=== PATIENT | male | born 1950 | race Caucasian/White ===

== ENCOUNTER 2016-10-17 11:11 | Day surgery (SDC) | payer MEDICARE ==
[2016-10-13 11:01] VITALS: BMI 22.6
[~2016-10-17 11:11] MED LIST: LIDOCAINE 1% 20 ML VIAL (10MG/ML) FOR IV START INTRADERMA PRN
[2016-10-17 11:32] VITALS: RESP 18; TEMP 97.5
[2016-10-17] MEDS: LACTATED RINGERS 1,000 ML IV SCH ×2 (11:37→12:57)
[2016-10-17] MEDS ORDERED: PROPOFOL 10 MG/ML 20 ML VIAL IV ONE (12:59)
--- NOTE | 2016-10-17 13:38 | P.PCN ---
Date of Procedure: 10/17/16 Preoperative Diagnosis: Postoperative Diagnosis: Procedure(s) Performed: Procedures: 1. Esophagogastroduodenoscopy and biopsy. 2. Colonoscopy and biopsy. Preoperative diagnosis: 1. Nausea, vomiting and history of reflux. 2. Change in bowel habits. Postoperative diagnosis: 1. Small hiatal hernia. 2. Johana esophagitis. 3. Mild antral gastritis. 4. Sigmoid diverticulosis. 5. Multiple biopsies obtained from the duodenum, antrum, esophagus and right colon. Preparation: HalfLytely prep. Sedation: Was provided by anesthesia. Brief clinical history: The patient is 66-year-old male who is referred for this evaluation because of issues with change in bowel habits in the form of diarrhea as well as reflux, nausea and vomiting that he has been having for several months and possibly longer. The patient had a prior upper and lower endoscopy several years back, perhaps, 15-20 years ago as far as he can remember. This evaluation is to assess for complicated reflux disease, neoplasia or other pathology. Procedure: With the patient on his left lateral decubitus position and after informed consent and adequate sedation, I passed the Olympus-GIF 160 video upper endoscope through the cricopharyngeus down the esophagus. GE junction was around 40 cm from the incisors and there was a small sliding hiatal hernia measuring between 1 and 2 cm. The endoscope was then passed into the stomach which was insufflated with air and inspected in detail including the retroflex view in the cardia. Finally, the endoscope was passed through the pylorus into the duodenum. Pyloric channel, duodenal bulb, post bulbar area and descending duodenum appeared within normal limits. The antrum showed mottling and erythema consistent with mild gastritis but there were no ulcers or gastric outlet obstruction or bleeding. The esophagus showed erythema and there were multiple small sticky white exudates consistent with Johana esophagitis. I obtained biopsies from the duodenum, antrum and esophagus then the endoscope was withdrawn and I proceeded with the colonoscopy. The perianal area did not show any fissures or fistulas. There were no masses felt on digital rectal examination. The Olympus CFQ 160L video colonoscope was then inserted in the rectum in the usual fashion and advanced to the cecum. The mucosa appeared healthy. No polyps or tumors were seen. Several diverticular orifices were seen scattered in the sigmoid with no evidence of acute diverticulitis or strictures. I obtained biopsies from the right colon then I retroflexed the endoscope in the rectum before the endoscope was withdrawn. The patient tolerated the procedure well. Plan: The patient was reassured. Will await biopsy results and make further plans based on his course and biopsy results. He will follow up with you as planned. Implants: Indications for Procedure: Operative Findings: Description of Procedure:
[2016-10-17 14:23] VITALS: BP 119/61; PULSE 83
== END 2016-10-17 14:42 | disposition home or self-care (01) ==
LOC: ORWHC2ENDO 11:11
DX: K29.50 Unspecified chronic gastritis without bleeding (principal); K21.0 Gastro-esophageal reflux disease with esophagitis; B37.81 Candidal esophagitis; K57.30 Diverticulosis of large intestine without perforation or abscess without bleeding; K44.9 Diaphragmatic hernia without obstruction or gangrene; R19.4 Change in bowel habit; M06.9 Rheumatoid arthritis, unspecified; F41.9 Anxiety disorder, unspecified; R56.9 Unspecified convulsions; Z79.899 Other long term (current) drug therapy; Z79.51 Long term (current) use of inhaled steroids; Z88.5 Allergy status to narcotic agent; F17.200 Nicotine dependence, unspecified, uncomplicated
CPT/HCPCS: 88305; 88342; 45380; 43239; J2704

== ENCOUNTER 2017-11-08 10:46 | Inpatient (IN) | payer MEDICARE ==
[2017-11-08] MEDS ORDERED: SODIUM CHLORIDE 0.9% 1,000 ML IV STA (10:50)
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
[2017-11-08] MEDS ORDERED: HYDROcodone/APAP 5-325MG 1 EACH TAB PO STA (11:38)
--- NOTE | 2017-11-08 12:05 | CT ---
EXAMINATION TYPE: CT brain wo con DATE OF EXAM: 11/08/2017 COMPARISON: None HISTORY: syncope CT DLP: [address] of the brain was performed. The ventricles, basal cisterns and sulci overlying the cerebral convexities demonstrate mild enlargem ent. There is no evidence for intracranial hemorrhage or sulcal effacement. There is decreased attenuation about the periventricular white matter and deep white matter of both c erebral hemispheres, compatible with chronic small vessel ischemia. Differential diagnosis does inclu de demyelination. No mass effects are seen.No midline shift. Osseous calvarium is intact. If symptoms persist consider MRI. IMPRESSION: 1. Age related atrophic and chronic small vessel ischemic change without acute intracranial process s een at this time.
[2017-11-08 12:08] LABS: Basophils % (A) 0 %; Eosinophils # (A) 0.1 k/uL (0-0.7); Eosinophils % (A) 2 %; HCT 34.6 % (39.0-53.0); HGB 11.7 gm/dL (13.0-17.5); Lymphocytes # (A) 0.9 k/uL (1.0-4.8); Lymphocytes % (A) 20 %; MCH 35.7 pg (25.0-35.0); MCHC 33.8 g/dL (31.0-37.0); MCV 105.5 fL (80.0-100.0); Macrocytosis Moderate; Mean Platelet Volume 6.9; Monocytes # (A) 0.3 k/uL (0-1.0); Monocytes % (A) 7 %; Neutrophils # (A) 3.2 k/uL (1.3-7.7); Neutrophils % (A) 70 %; Platelet Count 215 k/uL (150-450); RBC 3.28 m/uL (4.30-5.90); RDW 14.6 % (11.5-15.5); WBC 4.5 k/uL (3.8-10.6)
--- NOTE | 2017-11-08 12:11 | XR ---
EXAMINATION TYPE: XR chest 2V DATE OF EXAM: 11/08/2017 COMPARISON: NONE HISTORY: Shortness of breath TECHNIQUE: Frontal and lateral views of the chest are obtained. FINDINGS: Scattered senescent parenchymal changes noted. Hyperinflation compatible with COPD. Mild increased density at the lung bases may reflect developing atelectasis or infiltrates. Correlate clinically. Heart size is stable. Mediastinal structures are stable and grossly unremarkable. No evidence for hilar prominence. Degenerative changes dorsal spine. IMPRESSION: 1. Mild increased density at the lung bases may reflect developing atelectasis or infiltrates. Correl ate clinically.
[2017-11-08 12:17] LABS: D-Dimer 0.4 mg/L FEU (<0.60); Partial Thromboplastin Time 23.1 sec (22.0-30.0)
[2017-11-08 12:20] LABS: ALT 24 U/L (21-72); AST 31 U/L (17-59); Albumin 3.7 g/dL (3.5-5.0); Alkaline Phosphatase 129 U/L (38-126); Anion Gap 9 mmol/L; Blood Urea Nitrogen 13 mg/dL (9-20); Calcium 8.2 mg/dL (8.4-10.2); Carbamazepine (Tegretol) 12.2 ug/mL; Carbon Dioxide 26 mmol/L (22-30); Chloride 92 mmol/L (98-107); Glucose 120 mg/dL (74-99); Magnesium 1.5 mg/dL (1.6-2.3); Potassium 4.4 mmol/L (3.5-5.1); Sodium 127 mmol/L (137-145); Total Bilirubin 0.5 mg/dL (0.2-1.3); Total Protein 6.6 g/dL (6.3-8.2)
[2017-11-08 12:28] LABS: Appearance,Urine Clear (Clear); Bilirubin,Urine 1+ (Negative); Blood,Urine Negative (Negative); Color,Urine Yellow; Glucose,Urine (UA) Negative (Negative); Ketones,Urine Trace (Negative); Leukocyte Esterase,Urine Negative (Negative); Nitrite,Urine Negative (Negative); PH, Urine 6.5 (5.0-8.0); Protein,Urine Trace (Negative); Specific Gravity,Urine 1.015 (1.001-1.035); Urobilinogen,Urine <2.0 mg/dL (<2.0)
[2017-11-08] MEDS ORDERED: MAGNESIUM SULFATE-D5W PMX 1 GM in DEXTROSE/WATER 1 100ML.BAG IVPB ONE (12:32)
[2017-11-08 12:42] LABS: Creatine Kinase 111 U/L (55-170)
[2017-11-08 12:55] LABS: Creatine Kinase MB 2.2 ng/mL (0.0-2.4); Troponin I <0.012 ng/mL (0.000-0.034)
[2017-11-08] MEDS ORDERED: NALOXONE 0.4 MG/ML 1 ML VIAL IV PRN (13:32)
[2017-11-08] MEDS ORDERED: tiZANidine 4 MG TAB PO PRN (13:33)
[2017-11-08] MEDS ORDERED: ONDANSETRON 4 MG TAB PO PRN (13:33)
[2017-11-08] MEDS ORDERED: HYDROcodone/APAP 5-325MG 1 EACH TAB PO PRN (13:33)
[2017-11-08] MEDS ORDERED: VARDENAFIL HCL 20 MG PO PRN (13:33)
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
[2017-11-08] MEDS ORDERED: IPRATROPIUM-ALBUTEROL 3 ML NEB INHALATION PRN (14:22)
[2017-11-08] MEDS: SODIUM CHLORIDE 0.9% 1,000 ML IV SCH (14:33)
[2017-11-08] MEDS ORDERED: NICOTINE 21MG/24HR PATCH TRANSDERM STA (15:12)
[2017-11-08 15:30] VITALS: RESP 18
[2017-11-08] MEDS: carBAMazepine 200 MG TAB PO SCH ×3 (17:45→17:50)
[2017-11-08] MEDS ORDERED: PANTOPRAZOLE 40 MG TABLET PO STA (17:55)
[2017-11-08] MEDS: SYMBICORT 80-4.5 MCG INHALER INHALATION SCH (20:28)
[2017-11-08] MEDS: ETODOLAC 400 MG TAB PO SCH (20:51)
[2017-11-08] MEDS: busPIRone HCl 10 MG TAB PO SCH (20:51)
[2017-11-09] MEDS: SODIUM CHLORIDE 0.9% 1,000 ML IV SCH ×2 (03:00→14:08)
[2017-11-09] MEDS: carBAMazepine 200 MG TAB PO SCH ×2 (06:30→14:31)
[2017-11-09 07:07] LABS: Basophils % (A) 0 %; Eosinophils # (A) 0.1 k/uL (0-0.7); Eosinophils % (A) 2 %; HCT 34.9 % (39.0-53.0); HGB 11.6 gm/dL (13.0-17.5); Lymphocytes # (A) 1.7 k/uL (1.0-4.8); Lymphocytes % (A) 48 %; MCH 34.5 pg (25.0-35.0); MCHC 33.2 g/dL (31.0-37.0); Macrocytosis Slight; Mean Platelet Volume 7.1; Monocytes # (A) 0.2 k/uL (0-1.0); Monocytes % (A) 7 %; Neutrophils # (A) 1.4 k/uL (1.3-7.7); Neutrophils % (A) 40 %; Platelet Count 203 k/uL (150-450); RBC 3.35 m/uL (4.30-5.90); RDW 14.2 % (11.5-15.5); WBC 3.5 k/uL (3.8-10.6)
[2017-11-09] MEDS ORDERED: PANTOPRAZOLE 40 MG TABLET PO SCH (07:30)
[2017-11-09 07:33] LABS: ALT 22 U/L (21-72); AST 27 U/L (17-59); Albumin 3.6 g/dL (3.5-5.0); Alkaline Phosphatase 125 U/L (38-126); Anion Gap 9 mmol/L; Blood Urea Nitrogen 9 mg/dL (9-20); Calcium 8.2 mg/dL (8.4-10.2); Carbon Dioxide 25 mmol/L (22-30); Chloride 95 mmol/L (98-107); Glucose 96 mg/dL (74-99); Potassium 4.6 mmol/L (3.5-5.1); Sodium 129 mmol/L (137-145); Total Bilirubin 0.5 mg/dL (0.2-1.3); Total Protein 6.6 g/dL (6.3-8.2)
[2017-11-09] MEDS: ETODOLAC 400 MG TAB PO SCH (08:38)
[2017-11-09] MEDS: busPIRone HCl 10 MG TAB PO SCH (08:39)
--- NOTE | 2017-11-09 08:59 | US ---
EXAMINATION TYPE: US carotid duplex BILAT DATE OF EXAM: 11/09/2017 COMPARISON: NONE CLINICAL HISTORY: syncope. EXAM MEASUREMENTS: RIGHT: Peak Systolic Velocity (PSV) cm/sec ----- Right CCA: 74.3 ----- Right ICA: 80.9 ----- Right ECA: 60.4 ICA/CCA ratio: 1.1 RIGHT: End Diastole cm/sec ----- Right CCA: 24.8 ----- Right ICA: 39.1 ----- Right ECA: 12.5 LEFT: Peak Systolic Velocity (PSV) cm/sec ----- Left CCA: 61.5 ----- Left ICA: 102.5 ----- Left ECA: 84.0 ICA/CCA ratio: 1.7 LEFT: End Diastole cm/sec ----- Left CCA: 20.2 ----- Left ICA: 43.5 ----- Left ECA: 19.2 VERTEBRALS (direction of flow): Right Vertebral: Antegrade Left Vertebral: Antegrade Rhythm: Normal Grayscale images show moderate to severe eccentric hyperechoic plaque in the proximal left common car otid artery. There is no significant focal plaque in the carotid bulbs bilaterally. Velocity measurem ents and ratios in visualized portion of both internal carotid arteries is within normal limits. IMPRESSION: No hemodynamically significant stenosis is clearly identified in either internal carotid artery. Criteria for Assigning % of Stenosis / Diameter reduction (Estimation based on the indirect measurements of the internal carotid artery velocities (ICA PSV). 1. Normal (no stenosis)=ICA PSV < 125 cm/s: ratio < 2.0: ICA EDV<40 cm/s. 2. Less than 50% stenosis=ICA PSV < 125 cm/s: ratio < 2.0: ICA EDV<40 cm/s. 3. 50 to 69% stenosis=ICA PSV of 125 to 230 cm/s: ration 2.0 ? 4.0: ICA EDV 40-100 cm/s. 4. Greater than 70% stenosis to near occlusion= ICA PSV > 230 cm/s: ratio > 4.0: ICA EDV > 100 cm/s. 5. Near occlusion= ICA PSV velocities may be low or undetectable: variable ratio and ICA EDV. 6. Total occlusion=unable to detect flow.
[2017-11-09] MEDS ORDERED: ENOXAPARIN 40 MG/0.4 ML SYRINGE SQ SCH (09:00)
[2017-11-09] MEDS ORDERED: NICOTINE 21MG/24HR PATCH TRANSDERM SCH (09:00)
[2017-11-09] MEDS ORDERED: ASCORBIC ACID 500 MG TAB PO SCH (09:00)
[2017-11-09] MEDS ORDERED: Magnesium Replacement Protocol 1 EACH MISC MISCELLANE PRN (10:08)
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
[2017-11-09] MEDS: MAGNESIUM SULFATE-D5W PMX 1 GM in DEXTROSE/WATER 1 100ML.BAG IVPB SCH ×2 (11:10→13:13)
[2017-11-09] MEDS: SYMBICORT 80-4.5 MCG INHALER INHALATION SCH (11:26)
[2017-11-09 11:33] VITALS: BP 137/79; PULSE 69; TEMP 97
--- NOTE | 2017-11-09 11:42 | ECHOF ---
Referral Reason:syncope MEASUREMENTS -------- HEIGHT: 180.3 cm WEIGHT: 72.6 kg BP: 117/71 RVIDd: 3.4 cm (< 3.3) IVSd: 1.3 cm (0.6 - 1.1) LVIDd: 4.4 cm (3.9 - 5.3) LVPWd: 1.4 cm (0.6 - 1.1) IVSs: 1.9 cm LVIDs: 3.0 cm LVPWs: 1.9 cm LA Diam: 3.2 cm (2.7 - 3.8) LAESV Index (A-L): 30.80 ml/m Ao Diam: 3.8 cm (2.0 - 3.7) AV Cusp: 2.1 cm (1.5 - 2.6) EPSS: 1.5 cm MV E Luis Felipe: 0.70 m/s MV DecT: 252 ms MV A Luis Felipe: 0.61 m/s MV E/A Ratio: 1.14 AR PHT: 853 ms RAP: 5.00 mmHg RVSP: 28.67 mmHg MV EF SLOPE: 73.78 mm/s (70 - 150) MV EXCURSION: 2.21 cm (> 18.000) FINDINGS -------- Sinus rhythm. This was a technically adequate study. The left ventricular size is normal. There is mild concentric left ventricular hypertrophy. Overa ll left ventricular systolic function is low-normal with, an EF between 50 - 55 %. The right ventricle is mildly enlarged. LA is midly dilated 29-33ml/m2. The right atrium is normal in size. There is mild aortic valve sclerosis. There is [id number] aortic regurgitation. The mitral valve leaflets are mildly thickened. Mild mitral annular calcification present. Mild m itral regurgitation is present. Mild tricuspid regurgitation present. Right ventricular systolic pressure is normal at < 35 mmHg. The pulmonic valve was not well visualized. The aortic root is dilated measuring 3.8cm. Normal inferior vena cava with normal inspiratory collapse consistent with estimated right atrial pre ssure of 5 mmHg. The inferior vena cava is mildly dilated. There is no pericardial effusion. CONCLUSIONS -------- 1. Sinus rhythm. 2. This was a technically adequate study. 3. The left ventricular size is normal. 4. There is mild concentric left ventricular hypertrophy. 5. Overall left ventricular systolic function is low-normal with, an EF between 50 - 55 %. 6. The right ventricle is mildly enlarged. 7. LA is midly dilated 29-33ml/m2. 8. The right atrium is normal in size. 9. There is mild aortic valve sclerosis. 10. There is [id number] aortic regurgitation. 11. The mitral valve leaflets are mildly thickened. 12. Mild mitral annular calcification present. 13. Mild mitral regurgitation is present. 14. Mild tricuspid regurgitation present. 15. Right ventricular systolic pressure is normal at < 35 mmHg. 16. The pulmonic valve was not well visualized. 17. The aortic root is dilated measuring 3.8cm. 18. Normal inferior vena cava with normal inspiratory collapse consistent with estimated right atrial pressure of 5 mmHg. 19. The inferior vena cava is mildly dilated. 20. There is no pericardial effusion. CLOTH DOFFER: RADHA Combs
[2017-11-09] MEDS ORDERED: ADALIMUMAB 80 MG/1.6 ML KIT SQ SCH (12:00)
[2017-11-09] MEDS ORDERED: FOLIC ACID 1 MG TAB PO SCH (12:00)
[2017-11-09] MEDS ORDERED: MULTIVITAMINS, THERA 1 EACH TAB PO SCH (12:00)
--- NOTE | 2017-11-09 14:58 | P.DS ---
Providers Date of admission: 11/08/17 13:35 Expected date of discharge: 11/09/17 Attending physician: Cyndy Viera Consults: 11/08/17 13:32 Consult Physician Routine Consulting Provider: Goyo Chavarria Consult Reason/Comments: Syncope, bradycardia Do you want consulting provider notified?: Yes Primary care physician: Anthony Salazar [facility] Course: This is a 67-year-old male one of Dr. Marie Cruz with a previous medical history significant for closed head injury back in 1992 at work when he was working at [employer], seizure disorder, COPD, chronic tobacco use and dependence, history of rheumatoid arthritis, patient was at the [employer] he was getting haircut and also felt extremely fatigued sweaty and dizzy, he got out of the chair and went outside to get some air however he had a presyncopal episode and according to the report the patient had passed out, EMS was called and the patient was brought into the emergency department at [facility] for evaluation had a computed tomography scan of the brain and chest x-ray , the computed tomography scan of the brain was negative however the chest x- ray showed left lower lobe atelectasis, patient EKG showed normal sinus rhythm patient was admitted to the hospital for evaluation cardiology consult was obtained. 11/09: Patient has had no further syncope, lightheadedness or dizziness. He has been seen by cardiology with planned follow-up with Dr. Chavarria in 2-3 weeks. Uneventful monitor will be arranged. Carotid ultrasound showed no hemodynamically significant stenosis. Echocardiogram reveals EF of 50-55% with LA mildly dilated 29-33, mild concentric left ventricle hypertrophy, moderate aortic regurgitation, mild mitral regurgitation, mild tricuspid regurgitation, aortic root is dilated measuring 3.8 cm, estimated right atrial pressure of 5 mmHg. Patient will be discharged home today in stable condition. Discharge diagnoses: 1. Syncope likely vasovagal however cardiac arrhythmias need to be ruled out 2. Left lower lobe atelectasis 3. Hyponatremia due to hypovolemia. 4. Hypomagnesemia. 5. Chronic tobacco use and dependence. 6. Closed- Head injury with seizure disorder. 6. Rheumatoid arthritis. 7. COPD. 8. Macrocytosis due to methotrexate. Discharge plan: Return home Impression and plan of care have been directed as dictated by the signing physician. Tammie Mondragon nurse practitioner acting as scribe for signing physician. Patient Condition at Discharge: Good Plan - Discharge Summary New Discharge Prescriptions: New Nicotine 21Mg/24Hr Patch [Habitrol] 1 each TRANSDERM DAILY #30 patch Continue tiZANidine [Zanaflex] 4 mg PO HS PRN PRN Reason: Muscle Pain carBAMazepine [TEGretol] 200 mg PO BID Methotrexate Sodium (Pf) [Methotrexate 25 mg/ml Vial] 25 mg SQ Q7D Vardenafil HCl [Levitra] 20 mg PO DAILY PRN PRN Reason: ER DYS Etodolac [Lodine] 400 mg PO BID Adalimumab [Humira Pen Crohn-Uc-Hs Starter] 40 mg SQ Q14D busPIRone HCl [Buspar] 10 mg PO BID Folic Acid 1 mg PO DAILY Ondansetron HCl [Zofran] 8 mg PO BID PRN PRN Reason: NAUSEA/VOMITING Omeprazole 40 mg PO DAILY Multivit-Min/FA/Lycopen/Lutein [Centrum Silver Men Tablet] 1 tab PO DAILY HYDROcodone/APAP 5-325MG [[place] 5-325] 1 tab PO HS PRN PRN Reason: Pain Fluticasone/Salmeterol [Advair 250-50 Diskus] 1 puff INHALATION RT-BID carBAMazepine [TEGretol] 400 mg PO HS Ascorbic Acid [Vitamin C] 500 mg PO DAILY Discharge Medication List Adalimumab [Humira Pen Crohn-Uc-Hs Starter] 40 mg SQ Q14D 12/07/15 [History] Etodolac [Lodine] 400 mg PO BID 12/07/15 [History] Folic Acid 1 mg PO DAILY 12/07/15 [History] Methotrexate Sodium (Pf) [Methotrexate 25 mg/ml Vial] 25 mg SQ Q7D 12/07/15 [ History] Vardenafil HCl [Levitra] 20 mg PO DAILY PRN 12/07/15 [History] busPIRone HCl [Buspar] 10 mg PO BID 12/07/15 [History] carBAMazepine [TEGretol] 200 mg PO BID 12/07/15 [History] tiZANidine [Zanaflex] 4 mg PO HS PRN 12/07/15 [History] Ascorbic Acid [Vitamin C] 500 mg PO DAILY 11/08/17 [History] Fluticasone/Salmeterol [Advair 250-50 Diskus] 1 puff INHALATION RT-BID 11/08/17 [History] HYDROcodone/APAP 5-325MG [[place] 5-325] 1 tab PO HS PRN 11/08/17 [History] Multivit-Min/FA/Lycopen/Lutein [Centrum Silver Men Tablet] 1 tab PO DAILY [History] Omeprazole 40 mg PO DAILY 11/08/17 [History] Ondansetron HCl [Zofran] 8 mg PO BID PRN 11/08/17 [History] carBAMazepine [TEGretol] 400 mg PO HS 11/08/17 [History] Nicotine 21Mg/24Hr Patch [Habitrol] 1 each TRANSDERM DAILY #30 patch 11/09/17 [ Rx] Follow up Appointment(s)/Referral(s): Anthony Salazar MD [Primary Care Provider] - 11/16/17 9:30 am Goyo Chavarria MD [STAFF PHYSICIAN] - 11/15/17 4:00 pm Patient Instructions/Handouts: Hypomagnesemia (ED) Activity/Diet/Wound Care/Special Instructions: Event monitor at Cardiology office- The monitor will be mailed to you. Discharge Disposition: HOME SELF-CARE
== END 2017-11-09 14:46 | disposition home or self-care (01) | DRG 312 ==
LOC: EC 10:46 → 6SEL 13:35
PROVIDERS: ADMIT Internal Medicine; ATTEND Internal Medicine
DX: R55 Syncope and collapse (principal); E87.1 Hypo-osmolality and hyponatremia; R56.1 Post traumatic seizures; I45.2 Bifascicular block; J98.11 Atelectasis; K50.90 Crohn's disease, unspecified, without complications; T45.1X5A Adverse effect of antineoplastic and immunosuppressive drugs, initial encounter; D75.89 Other specified diseases of blood and blood-forming organs; E83.42 Hypomagnesemia; E86.1 Hypovolemia; F17.200 Nicotine dependence, unspecified, uncomplicated; Z87.820 Personal history of traumatic brain injury; I08.3 Combined rheumatic disorders of mitral, aortic and tricuspid valves; J44.9 Chronic obstructive pulmonary disease, unspecified; K21.9 Gastro-esophageal reflux disease without esophagitis; M06.9 Rheumatoid arthritis, unspecified; Z80.8 Family history of malignant neoplasm of other organs or systems; Z79.891 Long term (current) use of opiate analgesic; Z79.899 Other long term (current) drug therapy; Z88.5 Allergy status to narcotic agent; Z88.8 Allergy status to other drugs, medicaments and biological substances
CPT/HCPCS: 36415; 70450; 71046; 80053; 80156; 81003; 82550; 82553; 83735; 84484; 85025; 85379; 85610; 85730; 93306; 93880; 94640; 94760; 96361; 96365; 99291